=== PATIENT | male | born 1980 | race Caucasian/White ===

== ENCOUNTER 2019-11-02 12:14 | Emergency (ER) | payer OTHER ==
[~2019-11-02] VITALS: Ht 188 cm; Wt 95.3 kg
[2019-11-02 12:16] VITALS: BP 163/73
--- NOTE | 2019-11-02 12:22 | NUR ---
WAIT AT LOBBY.
--- NOTE | 2019-11-02 13:16 | NUR ---
PT AMBULATED TO ER BED 02
[2019-11-02] MEDS ORDERED: KETOROLAC 60 MG/2 ML VIAL IM ONE (14:15)
--- NOTE | 2019-11-02 14:54 | NUR ---
PT WAS MEDICATED WITH TORADOL.
--- NOTE | 2019-11-02 15:13 | NUR ---
Patient discharged with v/s stable. Written and verbal after care instructions given and explained. Patient alert, oriented and verbalized understanding of instructions. Ambulatory with steady gait. All questions addressed prior to discharge. ID band removed. Patient advised to follow up with PMD. Patient educated on indication of medication including possible reaction and side effects. Opportunity to ask questions provided and answered.
[2019-11-02 15:14] VITALS: BP 134/75
== END 2019-11-02 15:13 | disposition home or self-care (01) ==
LOC: MED 12:14
DX: M54.9 Dorsalgia, unspecified (principal); E11.9 Type 2 diabetes mellitus without complications; F14.10 Cocaine abuse, uncomplicated; Z87.19 Personal history of other diseases of the digestive system; W01.0XXA Fall on same level from slipping, tripping and stumbling without subsequent striking against object, initial encounter; Y93.89 Activity, other specified; Y92.89 Other specified places as the place of occurrence of the external cause; Y99.8 Other external cause status
CPT/HCPCS: 72100; 96372; 99283; J1885

== ENCOUNTER 2019-12-03 20:09 | Emergency (ER) | payer OTHER ==
[~2019-12-03] VITALS: Ht 188 cm; Wt 93.0 kg
[2019-12-03 20:12] VITALS: BP 120/85
--- NOTE | 2019-12-03 20:20 | NUR ---
PT TAKEN TO BED 3
[2019-12-03 20:25] VITALS: BP 120/85
--- NOTE | 2019-12-03 20:25 | NUR ---
PT ASSESSMENT COMPLETE. PT SEATED UPRIGHT IN BED. WILL CONTINUE TO MONITOR
[2019-12-03] MEDS ORDERED: KETOROLAC 30 MG/ML VIAL IM ONE (20:45)
[2019-12-03] MEDS ORDERED: DIAZEPAM 5 MG TAB PO ONE (20:45)
--- NOTE | 2019-12-03 20:54 | NUR ---
PT TAKEN TO RAD VIA WHEELCHAIR
--- NOTE | 2019-12-03 21:05 | NUR ---
PT REPORTS DECREASED PAIN. WILL CONTINUE TO MONITOR
--- NOTE | 2019-12-03 21:39 | NUR ---
Patient discharged with v/s stable. Written and verbal after care instructions given and explained. Patient alert, oriented and verbalized understanding of instructions. Ambulatory with steady gait. All questions addressed prior to discharge. ID band removed. Patient advised to follow up with PMD. Rx of LIDODERM, NAPROSYN, AND VALIUM given. Patient educated on indication of medication including possible reaction and side effects. Opportunity to ask questions provided and answered.
== END 2019-12-03 21:39 | disposition home or self-care (01) ==
LOC: MED 20:09
DX: S39.012A Strain of muscle, fascia and tendon of lower back, initial encounter (principal); E11.9 Type 2 diabetes mellitus without complications; F17.200 Nicotine dependence, unspecified, uncomplicated; Z71.6 Tobacco abuse counseling; X50.1XXA Overexertion from prolonged static or awkward postures, initial encounter; Y93.89 Activity, other specified; Y92.89 Other specified places as the place of occurrence of the external cause; Y99.8 Other external cause status
CPT/HCPCS: 72100; 96372; 99283; J1885

== ENCOUNTER 2020-05-02 14:47 | Emergency (ER) | payer OTHER ==
[~2020-05-02] VITALS: Ht 190.5 cm; Wt 99.8 kg
[2020-05-02 15:05] VITALS: BP 140/90
--- NOTE | 2020-05-02 15:20 | NUR ---
REFFERED TO ER FOR C/O BILAT LOWER ABD PAIN RADIATING TO BILAT LOWER BACK 06/14 ACCOMPANIED BY NAUSEA AND "COFFEE-LIKE" EMESIS. PT WAS SEEN AT URGENT CARE AND TOLD TO COME TO ER FOR FURTHER EVAL. PT DENIES FEVER, HEMATURIA, BLOOD IN STOOL. PT PROVIDED WITH GOWN. BED IN LOW POSITION, SIDE RAIL UP X1.
--- NOTE | 2020-05-02 15:37 | NUR ---
ERMD AT BEDSIDE
[2020-05-02] MEDS: KETOROLAC 30 MG/ML VIAL IVP ONE (15:52)
[2020-05-02] MEDS: NACL 0.9% 1,000 ML IV SCH (15:53)
[2020-05-02 16:00] LABS: APPEARANCE,URINE CLEAR (CLEAR); BILIRUBIN,URINE 2+ (NEGATIVE); BLOOD, URINE 2+ (NEGATIVE); COLOR,URINE YELLOW (YELLOW); LEUKOCYTE ESTERASE ,URINE NEGATIVE (NEGATIVE); NITRITE, URINE NEGATIVE (NEGATIVE); PH,URINE 5.5 (5.0-9.0); UGLUCOSE 2+ (NEGATIVE)
[2020-05-02 16:01] LABS: BASOPHILS # (AUTO) 0.1 K/uL (0.00-0.22); BASOPHILS % (AUTO) 0.6 % (0.0-2.0); EOSINOPHILS % (AUTO) 0.2 % (0.0-4.0); HEMATOCRIT 50.2 % (36-52); HEMOGLOBIN 17.3 g/dL (12.0-18.0); LYMPHOCYTES # (AUTO) 2.7 K/uL (2.0-11.5); LYMPHOCYTES % (AUTO) 26.6 % (20.5-51.1); MEAN CORPUSCULAR HEMOGLOBIN 33 pg (27-31); MEAN CORPUSCULAR HGB CONC 35 g/dL (33-37); MEAN CORPUSCULAR VOLUME 94.6 fL (80-94); MONOCYTES # (AUTO) 1.1 K/uL (0.8-1.0); NEUTROPHILS # (AUTO) 6.2 K/uL (1.8-7.7); NEUTROPHILS % (AUTO) 61.6 % (42.2-75.2); PLATELET COUNT (AUTO) 268 K/uL (140-450); RED BLOOD CELL COUNT(AUTO) 5.31 MIL/uL (4.20-6.10); RED CELL DISTRIBUTION WIDTH 12.4 % (11.6-13.7); WHITE BLOOD COUNT (AUTO) 10.1 K/uL (4.8-10.8)
[2020-05-02 16:19] LABS: FINE GRANULAR CASTS,URINE 0-10 /LPF (None Seen)
[2020-05-02 16:19] LABS: ALBUMIN 5.3 g/dL (3.4-5.0); ANION GAP 16.8 (8-16); CREATININE 1.8 mg/dL (0.6-1.3); POTASSIUM 4.8 mmol/L (3.5-5.1); TOTAL BILIRUBIN 1.5 mg/dL (0.0-1.0)
[2020-05-02 16:36] LABS: PROTHROMBIN TIME 10.9 secs (10.8-13.4)
--- NOTE | 2020-05-02 17:00 | NUR ---
Patient discharged with v/s stable. Written and verbal after care instructions given and explained. Patient alert, oriented and verbalized understanding of instructions. Ambulatory with steady gait. All questions addressed prior to discharge. ID band removed. Patient advised to follow up with PMD. Rx of PRILOSEC, ZOFRAN, NORCO given. Patient educated on indication of medication including possible reaction and side effects. Opportunity to ask questions provided and answered.
[2020-05-02 17:10] VITALS: BP 132/86
[2020-05-02] MEDS: PANTOPRAZOLE 40 MG INJ VIAL IVP ONE (17:20)
== END 2020-05-02 17:00 | disposition home or self-care (01) ==
LOC: MED 14:47
DX: K92.0 Hematemesis (principal); R10.9 Unspecified abdominal pain
CPT/HCPCS: 36415; 71045; 74176; 80053; 81001; 83690; 85025; 85610; 85730; 86886; 86900; 86901; 87086; 96361; 96374; 96375; 99285; C9113; J1885; J7030; Q0092